=== PATIENT | male | born 2000 | race Caucasian/White ===

== ENCOUNTER 2020-05-21 13:17 | Emergency (ER) | payer OTHER ==
[~2020-05-21] VITALS: Ht 165.1 cm; Wt 68.0 kg
--- NOTE | 2020-05-21 13:54 | NUR ---
Patient to ER bed 7 to gown for evaluation. Side rails up. Report given to CHANDLER CROSS.
[2020-05-21 13:55] VITALS: BP_SYST 146
--- NOTE | 2020-05-21 13:55 | NUR ---
Patient C/O lip laceration. Patient A&Ox4, ambulatory to ER, afebrile, lip laceration to midline upper lip, pain /,denies N/V/D. Patient reports he had trip and fall at work, he hit his face during fall.
--- NOTE | 2020-05-21 14:18 | NUR ---
Dione magana in [facility] - 05/21/20 at 1419 by SDEDTD WALLY Henley at bedside examining patient.
--- NOTE | 2020-05-21 14:18 | NUR ---
ER Dr. Henley at bedside examining patient.
--- NOTE | 2020-05-21 14:18 | NUR ---
ER Dr. Yee at bedside examining patient.
[2020-05-21] MEDS ORDERED: LIDOCAINE 1%, 20 ML MDV 20 ML ONE (14:37)
--- NOTE | 2020-05-21 14:45 | NUR ---
Patient has a 3 cm laceration to lip. Dr. Yee applied sutures using sterile technique. Edges well approximated. Site cleansed with sterile water. No bleeding noted. Pt tolerated well.
[2020-05-21] MEDS ORDERED: TRAM50TA2 PO (15:09)
[2020-05-21] MEDS ORDERED: PENI500T PO (15:09)
[2020-05-21 15:20] VITALS: BP_SYST 146
--- NOTE | 2020-05-21 15:38 | NUR ---
Patient given written and verbal discharge instructions and verbalizes understanding. ER MD discussed with patient the results and treatment provided. Patient in stable condition. ID arm band removed. Rx of penicillin & tramadol given. Patient educated on pain management and to follow up with PMD. Pain Scale 2/10. Opportunity for questions provided and answered. Medication side effect fact sheet provided.
== END 2020-05-21 15:38 | disposition home or self-care (01) ==
LOC: SED 13:17
DX: S01.511A Laceration without foreign body of lip, initial encounter (principal); W22.8XXA Striking against or struck by other objects, initial encounter; Y93.89 Activity, other specified; Y92.89 Other specified places as the place of occurrence of the external cause; Y99.8 Other external cause status
CPT/HCPCS: 12013; 99283; J2001